=== PATIENT | female | born 1935 | race Caucasian/White ===

== ENCOUNTER → 2018-07-06 | Outpatient (CLI) | payer MEDICARE, BC ==
[~2018-07-06] MED LIST: ACIDOPHILUS PO; ASPIRIN E.C. 8181 MG PO; CINNAMON BARK PO; CO Q-1050 MG PO; FORTAMET500 MG PO; GARLIC1 TAB PO; GLUCOSAMINE CHO1 TAB PO; GLUCOTROL10 MG PO; GLYBURIDE2.5 MG PO; INDERAL PO; LEVAQUIN 5500 MG/TA1 PO; METFORMIN500 MG PO; MICROZIDE12.5 MG PO; MULTI VITAMINS1 TAB PO; OMEGA-31 SGL PO; POTASSIUM '99'620 MG PO; PROBIOTIC ACIDOPHILU; SYNTHROID0.05 MG PO; SYNTHROID0.075 MG/T PO; TOPROL XL25 MG PO; VIT C; VIT D; VITAMIN B COMPL1 T16 PO; VITAMIN C500 MG PO; VITAMIN E 400 U4001 PO; VITAMIN E1000 U/CAP PO; [UNRECOGNIZED DRUG - OTHER] PO; [UNRECOGNIZED DRUG - OTHER] PO
== END ==
LOC: COL.RAD 08:35
DX: R16.1 Splenomegaly, not elsewhere classified (principal); R10.32 Left lower quadrant pain; R10.2 Pelvic and perineal pain; Z90.710 Acquired absence of both cervix and uterus; Z90.49 Acquired absence of other specified parts of digestive tract

== ENCOUNTER → 2019-11-26 | Outpatient (CLI) | payer MEDICARE, BC | LOC: COL.RAD 07:54 | DX: R14.0 Abdominal distension (gaseous) (principal) ==

== ENCOUNTER → 2019-12-06 | Outpatient (CLI) | payer MEDICARE, BC | LOC: COL.RAD 08:25 | DX: J90 Pleural effusion, not elsewhere classified (principal); R18.8 Other ascites ==